=== PATIENT | male | born 1970 | race Caucasian/White ===

== ENCOUNTER 2020-05-24 13:38 | Emergency (ER) | payer OTHER ==
[2020-05-24 17:25] LABS: HEMOGLOBIN 14.1 gm/dl (14.0-17.5); RED BLOOD COUNT 4.6 M/UL (4.20-5.50); WHITE BLOOD COUNT 12.4 K/UL (4.5-11.0)
[2020-05-24 17:40] LABS: BUN/CREATININE RATIO 16 (0-10)
== END 2020-05-24 22:45 | disposition short-term general hospital (02) ==
LOC: ER1 13:38
PROVIDERS: Physician Assistant
DX: A41.9 Sepsis, unspecified organism (principal); H60.21 Malignant otitis externa, right ear; I25.2 Old myocardial infarction; Z20.822 Contact with and (suspected) exposure to COVID-19; E78.5 Hyperlipidemia, unspecified; J44.9 Chronic obstructive pulmonary disease, unspecified; I11.9 Hypertensive heart disease without heart failure; G40.909 Epilepsy, unspecified, not intractable, without status epilepticus; F17.210 Nicotine dependence, cigarettes, uncomplicated
CPT/HCPCS: 70487; 80048; 83605; 85025; 85652; 86140; 87040; 96365; 96366; 96368; 99284; J2543; J3370; J7050; Q9963; U0002